=== PATIENT | male | born 1955 | race Two or more races ===

== ENCOUNTER 2017-09-26 15:16 | Emergency (ER) | payer MEDICARE, OTHER ==
[~2017-09-26] VITALS: Ht 198.1 cm; Wt 108.9 kg
[2017-09-26] MEDS ORDERED: Hydrogen Peroxide 473ml Bottle TOPIC ONE (17:22)
[2017-09-26] MEDS ORDERED: Bacitracin Oint UD TOPIC ONE (17:22)
--- NOTE | 2017-09-26 18:09 | Emergency Room Report ---
History of Present Illness General Chief Complaint: General Complaint Source: Patient Present Illness HPI Patient presents for pleading on to his left foot. He states that he had a skin removal procedure on his foot at an outpatient clinic. He states he was changing his dressing today and noted bleeding on his foot. He was unsure where it was coming from. He denies pain. He has no other complaints. Allergies: Coded Allergies: No Known Allergies (Unverified , 09/26/17) Patient History Past Medical History: see triage record, DM, HTN, renal disease, dialysis Social History: Denies: smoking, alcohol use, drug use Reviewed Nursing Documentation: PMH: Agreed, PSxH: Agreed Nursing Documentation-PMH Past Medical History: No History, Except For Hx Hypertension: Yes Hx Diabetes: Yes Hx Dialysis: Yes - M, W, F Review of Systems All Other Systems: negative except mentioned in HPI Physical Exam Vital Signs Date Time Temp Pulse Resp B/P (MAP) Pulse Ox O2 Delivery O2 Flow Rate FiO2 09/26/17 15:16 98.2 111 18 182/86 99 Room Air Sp02 EP Interpretation: reviewed, normal General Appearance: no apparent distress, alert, GCS 15, non-toxic Head: normocephalic, atraumatic Eyes: bilateral eye normal inspection, bilateral eye PERRL ENT: hearing grossly normal, normal pharynx, no angioedema, normal voice Neck: full range of motion, supple/symm/no masses Respiratory: chest non-tender, lungs clear, normal breath sounds, speaking full sentences Cardiovascular #1: regular rate, rhythm, no edema Gastrointestinal: normal bowel sounds, non tender, soft, non-distended, no guarding, no rebound Rectal: deferred Musculoskeletal: back normal, normal range of motion, non-tender, other - See Skin exam Neurologic: alert, oriented x3, responsive, motor strength/tone normal, sensory intact, speech normal Psychiatric: judgement/insight normal, memory normal, mood/affect normal, no suicidal/homicidal ideation Skin: normal color, no rash, warm/dry, well hydrated, other - Adhered dressing to bottom of foot. Small thin area of avulsed skin on foot. Not actively bleeding. Medical Decision Making Diagnostic Impression: Primary Impression: Skin abrasion ER Course This patient has some skin avulsion that had bled likely secondary to removal of the dressing that had been placed by the outpatient clinic. There is no active bleeding. The wound is very small. There is minimal blood loss. The foot was cleaned, bacitracin was applied and the wound was redressed. The patient is instructed to followup with his primary care physician. He is given wound care precautions and followup instructions. Last Vital Signs Date Time Temp Pulse Resp B/P (MAP) Pulse Ox O2 Delivery O2 Flow Rate FiO2 09/26/17 15:16 98.2 111 18 182/86 99 Room Air Status: improved Disposition: HOME, SELF-CARE Condition: Improved Referrals: NOT CHOSEN CHRISTINA/,REFERRING (PCP) YUSUF GOODMAN D.O. Sep 26, 2017 18:09
[2017-09-26 18:40] VITALS: BP 159/100
== END 2017-09-26 18:56 | disposition home or self-care (01) ==
LOC: EDBD 15:16 → EMR 15:45
DX: S90.812A Abrasion, left foot, initial encounter (principal); X58.XXXA Exposure to other specified factors, initial encounter; Y92.9 Unspecified place or not applicable; E11.9 Type 2 diabetes mellitus without complications; I10 Essential (primary) hypertension
CPT/HCPCS: 99283